=== PATIENT | male | born 1970 | race Two or more races ===

== ENCOUNTER 2019-08-13 16:44 | Emergency (ER) | payer OTHER ==
[~2019-08-13] VITALS: Ht 162.6 cm; Wt 90.7 kg
--- NOTE | 2019-08-13 17:36 | Emergency Room Report ---
History of Present Illness General Chief Complaint: Head Injury Source: Patient Present Illness HPI 48-year-old male with no significant past medical history here due to head injury that occurred at work earlier today. Patient reports that he was installing a glass window as he had his head to the glass. The glass broke there is a possibility that may be small pieces and had a laceration of his head. Very superficial laceration noted on frontal lobe, patient denies any loss of consciousness, dizziness nausea vomiting. Complains of minimal headache rating a 3-10. Denies blurred vision. Is up-to-date with tetanus shot. Denies other injuries. Denies chest pain, shortness of breath, palpitation, and other associated symptoms. Patient is currently not on any blood thinners. Allergies: Coded Allergies: No Known Allergies (Unverified , 08/13/19) Patient History Past Medical History: see triage record Past Surgical History: unable to obtain Pertinent Family History: none Immunizations: UTD Reviewed Nursing Documentation: PMH: Agreed; PSxH: Agreed Nursing Documentation-PMH Past Medical History: No Stated History Review of Systems All Other Systems: negative except mentioned in HPI Physical Exam Vital Signs Date Time Temp Pulse Resp B/P (MAP) Pulse Ox O2 Delivery O2 Flow Rate FiO2 08/13/19 16:48 97.2 78 18 122/78 (93) 95 Room Air Sp02 EP Interpretation: reviewed, normal General Appearance: no apparent distress, alert, GCS 15, non-toxic Head: other - Laceration noted frontal lobe Eyes: bilateral eye normal inspection, bilateral eye PERRL ENT: hearing grossly normal, normal pharynx, no angioedema, normal voice Neck: full range of motion, supple, supple/symm/no masses Respiratory: chest non-tender, lungs clear, normal breath sounds, no rhonchi, no retraction, no wheezing, speaking full sentences Cardiovascular #1: regular rate, rhythm, no edema, no murmur Gastrointestinal: non tender, soft Rectal: deferred Genitourinary: no CVA tenderness Neurologic: alert, motor strength/tone normal, oriented, distal neuro normal, oriented x3, sensory intact, responsive, speech normal Psychiatric: judgement/insight normal, memory normal, mood/affect normal, no suicidal/homicidal ideation Skin: no rash Lymphatic: no adenopathy Medical Decision Making PA Attestation Diagnosis and treatment plans were reviewed and discussed with my supervising physician Dr. Garnica Diagnostic Impression: Primary Impression: Head contusion Additional Impression: Laceration of head ER Course 48-year-old male with no significant past medical history here due to head injury that occurred at work earlier today. Patient reports that he was installing a glass window as he had his head to the glass. The glass broke there is a possibility that may be small pieces and had a laceration of his head. Very superficial laceration noted on frontal lobe, patient denies any loss of consciousness, dizziness nausea vomiting. Complains of minimal headache rating a 3-10. Denies blurred vision. Is up-to-date with tetanus shot. Denies other injuries. Denies chest pain, shortness of breath, palpitation, and other associated symptoms. Patient is currently not on any blood thinners. Ddx considered but are not limited to: cerebral hematoma, concussion, skull fracture, head contusion Vital signs: are WNL, pt. is afebrile H&PE are most consistent with: Head contusion, laceration of head superficial ORDERS: head CT no contrast, Motrin ED INTERVENTIONS: Wound closure via ori, wound clean and dressed DISCHARGE: At this time pt. is stable for d/c to home. Will provide printed patient care instructions, and any necessary prescriptions. Care plan and follow up instructions have been discussed with the patient prior to discharge. [place] to be removed in 7 to 10 days, medication as directed, if worsening symptoms return to emergency room CT/MRI/US Diagnostic Results CT/MRI/US Diagnostic Results : Imaging Test Ordered: Head CT no contrast Impression Within normal limits, no intracranial bleed, no foreign body, no skull fracture Last Vital Signs Date Time Temp Pulse Resp B/P (MAP) Pulse Ox O2 Delivery O2 Flow Rate FiO2 08/13/19 16:48 97.2 78 18 122/78 (93) 95 Room Air Disposition: HOME, SELF-CARE Condition: Stable Scripts Ibuprofen* (MOTRIN*) 600 Mg Tablet 600 MG ORAL Q8H PRN for For Pain, #30 TAB 0 Refills Prov: Shayna Carter 08/13/19 Patient Instructions: Facial or Scalp Contusion, [id number], Laceration Care , Adult, [id number] Additional Instructions: Ori to be removed in 7 to 10 days, take medication as directed, follow-up with your primary care provider if worsening symptoms return to the emergency room Shayna Carter Aug 13, 2019 17:36
[2019-08-13] MEDS ORDERED: IBUPROFEN600 MG ORAL (17:37)
[2019-08-13 17:44] VITALS: BP 122/78
--- NOTE | 2019-08-13 17:46 | NUR ---
ED Nurse Note:pt. came with laceration on top of his head from hitting sharp object at work, wound was cleaned and ori placed
--- NOTE | 2019-08-13 18:03 | Diagnostic Imaging Report ---
Indication: Headache Technique: Contiguous 5 mm thick transaxial imaging of the head obtained in a Siemens Sensation [address] scanner. Soft tissue and bone windows generated. Automatic Exposure Control was utilized. Total Dose length Product (DLP): 130[address] Dose Index Volume (CTDIvol): 62.7 mGy Comparison: none Findings: The size and configuration of the cortical sulci, basal cisterns, and ventricles are within normal limits for age. There is no mass effect, midline shift, or edema identified. There is no evidence of acute hemorrhage or abnormal intra-axial or extra-axial fluid collections. The bones and soft tissues are unremarkable. Impression: No mass effect, edema or acute bleed. [facility] has communicated the preliminary results to the Emergency Department. Their findings are largely concordant with this report. The CT scanner at [facility] is accredited by the [employer] and the scans are performed using dose optimization techniques as appropriate to a performed exam including Automatic Exposure control.
[2019-08-13 18:15] VITALS: BP 122/78
--- NOTE | 2019-08-13 18:15 | NUR ---
ER DISCHARGE NOTE: Patient is cleared to be discharged per ERMD, pt is aox4, on room air, with stable vital signs. pt was given dc and prescription instructions, pt was able to verbalize understanding, pt is able to ambulate with steady gait. pt took all belongings.
== END 2019-08-13 18:15 | disposition home or self-care (01) ==
LOC: EMR 17:13
DX: S01.91XA Laceration without foreign body of unspecified part of head, initial encounter (principal); S00.93XA Contusion of unspecified part of head, initial encounter; W25.XXXA Contact with sharp glass, initial encounter; Y92.9 Unspecified place or not applicable; Y99.0 Civilian activity done for income or pay
CPT/HCPCS: 70450; 99284